=== PATIENT | female | born 1985 | race Hispanic/Latino ===

== ENCOUNTER 2019-08-25 19:47 | Inpatient (IN) | payer MEDICAID ==
[~2019-08-25] VITALS: Ht 152.4 cm; Wt 72.6 kg
[~2019-08-25 19:47] MED LIST: PREN-196 PO; PREN1TAB80 PO
[2019-08-25] MEDS ORDERED: LACTATED RINGERS 1000ML 1,000 ML IV PRN (19:50)
[2019-08-25] MEDS ORDERED: AMPICILLIN 2GM+NS 100ML 100 ML IV SCH (20:00)
[2019-08-25 20:30] VITALS: BP 118/71
[2019-08-25 20:50] LABS: APPEARANCE,URINE Cloudy (CLEAR); BILIRUBIN,URINE Negative (NEGATIVE); COLOR,URINE Yellow (YELLOW); GLUCOSE, URINE (UA) Negative (NEGATIVE); KETONES,URINE Negative (NEGATIVE); LEUKOCYTE ESTERASE ,URINE Large (NEGATIVE); NITRATE,URINE Negative (NEGATIVE); OCCULT BLOOD,URINE Negative (NEGATIVE); PH,URINE 6.5 (5.0-8.0); PROTEIN,URINE Negative (NEGATIVE)
[2019-08-25 21:05] LABS: RBC,URINE None Seen /HPF (0-1)
[2019-08-25 21:06] LABS: BACTERIA,URINE Few /HPF (None Seen)
[2019-08-25 21:19] LABS: HEMATOCRIT 38.3 % (36-48); MEAN CORPUSCULAR HEMOGLOBIN 31.7 pg (27.0-33.0); MEAN CORPUSCULAR HGB CONC 34.2 g/dL (32.0-36.0); MEAN CORPUSCULAR VOLUME 92.7 fL (79-99); RED BLOOD CELL COUNT(AUTO) 4.13 MIL/uL (4.00-5.50); RED CELL DISTRIBUTION WIDTH 13.9 % (11.0-15.5); WHITE BLOOD COUNT (AUTO) 9.1 K/uL (4.8-10.8)
[2019-08-26] MEDS: AMPICILLIN 1GM+NS 50ML 50 ML IV SCH ×2 (00:50→08:52)
[2019-08-26] MEDS: OXYTOCIN-LR 20 UNITS/1000 ML 1,000 ML IV SCH ×2 (03:55→11:56)
[2019-08-26] MEDS ORDERED: MEPERIDINE-PF 50 MG/ML SYG IVP SCH (07:15)
[2019-08-26] MEDS ORDERED: PROMETHAZINE HCL 25 MG/ML 1ML AMPULE IM SCH (07:15)
[2019-08-26] MEDS ORDERED: LACTATED RINGERS 500 ML 500 ML IV PRN (08:15)
[2019-08-26] MEDS ORDERED: EPHEDRINE SULFATE 50 MG/ML AMPULE IVP PRN (08:15)
[2019-08-26] MEDS ORDERED: NALOXONE HCL 0.4 MG/1 ML ML IV PRN (08:15)
[2019-08-26] MEDS ORDERED: WITCH HAZEL 1 PAD TP PRN (12:15)
[2019-08-26] MEDS ORDERED: MEASLES/MUMPS/RUBELLA VACCINE, LIVE 0.5 ML/VIAL SQ PRN (12:15)
[2019-08-26] MEDS ORDERED: ACETAMINOPHEN 325 MG TAB PO PRN (12:15)
[2019-08-26] MEDS ORDERED: DIPH,PERTUSS(ACELL),TET VAC/PF 0.5 ML VIAL IM PRN (12:15)
[2019-08-26] MEDS ORDERED: LANOLIN 30GM OINTMENT TP PRN (12:15)
[2019-08-26] MEDS ORDERED: BENZOCAINE/LANOLIN/ALOE VERA 60 ML AEROSOL TP PRN (12:15)
[2019-08-26 13:10] VITALS: BP 112/71
[2019-08-26] MEDS: IBUPROFEN 600 MG TABLET PO PRN ×2 (13:17→18:53)
[2019-08-26 16:29] VITALS: BP 110/68
[2019-08-26] MEDS ORDERED: PNV1TABL17 PO (16:37)
[2019-08-26 19:37] VITALS: BP 94/51
[2019-08-26] MEDS: DOCUSATE SODIUM 100 MG CAP PO SCH (20:56)
[2019-08-26 23:39] VITALS: BP 121/75
[2019-08-27 03:49] VITALS: BP 102/50
[2019-08-27 05:35] LABS: HEMATOCRIT 34.3 % (36-48); MEAN CORPUSCULAR HEMOGLOBIN 31.3 pg (27.0-33.0); MEAN CORPUSCULAR HGB CONC 33.2 g/dL (32.0-36.0); MEAN CORPUSCULAR VOLUME 94.2 fL (79-99); RED BLOOD CELL COUNT(AUTO) 3.64 MIL/uL (4.00-5.50); RED CELL DISTRIBUTION WIDTH 14.2 % (11.0-15.5); WHITE BLOOD COUNT (AUTO) 10.7 K/uL (4.8-10.8)
[2019-08-27 07:52] VITALS: BP 116/76
[2019-08-27] MEDS: DOCUSATE SODIUM 100 MG CAP PO SCH (08:49)
[2019-08-27] MEDS: IBUPROFEN 600 MG TABLET PO PRN (08:50)
[2019-08-27 09:11] LABS: HEPATITIS Bs ANTIGEN SCREEN P Negative (Negative)
[2019-08-27 11:08] VITALS: BP 123/76
--- NOTE | 2019-08-27 11:35 | NUR ---
DISCHARGE INSTRUCTIONS READ AND EXPLAINED TO PATIENT. QUESTIONS INVITED AND ANSWERED. NO RX GIVEN. PATIENT VOICED UNDERSTANDING ON ALL INSTRUCTIONS.
--- NOTE | 2019-08-27 11:50 | NUR ---
PATIENT LEFT UNIT VIA WHEELCHAIR WITH BELONGINGS IN HAND. PERSONAL VEHICLE USED FOR TRANSPORTATION. BABY SECURE IN CARSEAT. NO COMPLAINTS OR CONCERNS ADDRESSED FROM PATIENT ON DISCHARGE.
== END 2019-08-27 11:50 | disposition home or self-care (01) | DRG 560 ==
LOC: OBSVTOIN 19:47 → LDH 19:47 → WSH 08-26 13:10
PROVIDERS: ADMIT Obstetrics & Gynecology; ATTEND Obstetrics & Gynecology
PROC: 10E0XZZ Delivery of Products of Conception, External Approach (ICD-10-PCS; principal; 2019-08-26)
PROC: 3E0R3BZ Introduction of Anesthetic Agent into Spinal Canal, Percutaneous Approach (ICD-10-PCS; 2019-08-26)
PROC: 00HU33Z Insertion of Infusion Device into Spinal Canal, Percutaneous Approach (ICD-10-PCS; 2019-08-26)
PROC: 3E0234Z Introduction of Serum, Toxoid and Vaccine into Muscle, Percutaneous Approach (ICD-10-PCS; 2019-08-26)
PROC: 3E0134Z Introduction of Serum, Toxoid and Vaccine into Subcutaneous Tissue, Percutaneous Approach (ICD-10-PCS; 2019-08-26)
DX: O69.1XX0 Labor and delivery complicated by cord around neck, with compression, not applicable or unspecified (principal); Z37.0 Single live birth; O99.824 Streptococcus B carrier state complicating childbirth; Z23 Encounter for immunization; Z3A.39 39 weeks gestation of pregnancy
CPT/HCPCS: 36415; 81001; 85027; 86592; 86850; 86900; 86901; 87088; 87340; 90715; G0378; J0290; J2175; J2550; J2590; J7120

== ENCOUNTER 2020-03-27 18:30 | Emergency (ER) | payer MEDICAID ==
[~2020-03-27 18:30] MED LIST changes: +PNV1TABL17 PO
[2020-03-27] MEDS ORDERED: LIDOCAINE HCL 1% 20 ML VIAL ONE (18:48)
[2020-03-27] MEDS ORDERED: CEPHALEXIN 500 MG CAPSULE ONE (18:58)
[2020-03-27] MEDS ORDERED: HYDROCODONE/ACETAMINOPHEN 10/325 MG TAB ONE (18:58)
[2020-03-27] MEDS ORDERED: TETANUS/DIPHTHERIA TOXOID [ADULT] 0.5 ML VIAL IM ONE (18:59)
== END 2020-03-27 20:42 | disposition home or self-care (01) ==
LOC: EDH 18:30
DX: S61.214A Laceration without foreign body of right ring finger without damage to nail, initial encounter (principal); S61.216A Laceration without foreign body of right little finger without damage to nail, initial encounter; W26.0XXA Contact with knife, initial encounter; Y93.89 Activity, other specified; Y92.89 Other specified places as the place of occurrence of the external cause; Y99.8 Other external cause status
CPT/HCPCS: 12001; 73130; 90471; 90714

== ENCOUNTER 2020-04-05 16:55 | Emergency (ER) | payer MEDICAID | END 2020-04-05 19:54 | disposition left against medical advice (07) | LOC: EDH 16:55 | DX: Z48.02 Encounter for removal of sutures (principal); Z53.21 Procedure and treatment not carried out due to patient leaving prior to being seen by health care provider ==

== ENCOUNTER 2020-04-07 18:30 | Emergency (ER) | payer MEDICAID | END 2020-04-07 19:31 | disposition home or self-care (01) | LOC: EDH 18:30 | DX: S61.214D Laceration without foreign body of right ring finger without damage to nail, subsequent encounter (principal); S61.216D Laceration without foreign body of right little finger without damage to nail, subsequent encounter; X58.XXXD Exposure to other specified factors, subsequent encounter | CPT/HCPCS: 99281 ==

== ENCOUNTER 2020-04-13 19:03 | Emergency (ER) | payer MEDICAID ==
[2020-04-14] MEDS ORDERED: VITA1CAP85 PO (11:34)
== END 2020-04-13 19:44 | disposition home or self-care (01) ==
LOC: EDH 19:03
DX: S61.214D Laceration without foreign body of right ring finger without damage to nail, subsequent encounter (principal); S61.216D Laceration without foreign body of right little finger without damage to nail, subsequent encounter; S01.81XD Laceration without foreign body of other part of head, subsequent encounter; X58.XXXD Exposure to other specified factors, subsequent encounter
CPT/HCPCS: 99281

== ENCOUNTER 2020-04-14 07:35 | Emergency (ER) | payer MEDICAID ==
[~2020-04-14] VITALS: Ht 152.4 cm; Wt 61.2 kg
[2020-04-14 08:45] LABS: BILIRUBIN,URINE NEGATIVE (NEGATIVE); COLOR,URINE YELLOW (YELLOW); GLUCOSE, URINE (UA) NEGATIVE (NEGATIVE); KETONES,URINE NEGATIVE (NEGATIVE); LEUKOCYTE ESTERASE ,URINE SMALL (NEGATIVE); NITRATE,URINE NEGATIVE (NEGATIVE); OCCULT BLOOD,URINE LARGE (NEGATIVE); PROTEIN,URINE TRACE mg/dL (NEGATIVE); UROBILINOGEN,URINE 0.2 mg/dL (0.2-1.0)
[2020-04-14 08:46] LABS: HCG,QUAL RESULT NEGATIVE (NEGATIVE)
[2020-04-14 08:48] LABS: APPEARANCE,URINE CLOUDY (CLEAR)
[2020-04-14 08:58] LABS: BACTERIA,URINE Moderate /HPF (None Seen); RBC,URINE 26-50 /HPF (0-1)
[2020-04-14 08:59] LABS: MUCUS,URINE Moderate LPF (None Seen); SQUAMOUS EPITHELIAL CELL,UR 30-50 /HPF (0-2)
[2020-04-14] MEDS ORDERED: LACTATED RINGERS 1000ML 1,000 ML IV ONE (11:06)
[2020-04-14 11:30] VITALS: BP 119/74
[2020-04-14] MEDS ORDERED: VITA1CAP85 PO (11:34)
== END 2020-04-14 12:46 | disposition home or self-care (01) ==
LOC: EDH 07:35 → UNDOADMOB 07:36 → EDHIP 07:36 → UNDOADMOB 07:37 → UNDODISOB 12:48
DX: S66.129A Laceration of flexor muscle, fascia and tendon of unspecified finger at wrist and hand level, initial encounter (principal); Z20.822 Contact with and (suspected) exposure to COVID-19; X58.XXXA Exposure to other specified factors, initial encounter; Y93.89 Activity, other specified; Y92.89 Other specified places as the place of occurrence of the external cause
CPT/HCPCS: 81001; 81025; 87077; 87088; 87186; 87426; 99284; A4216; A4222; A4223; A4663; G0378 ×3; J7120; U0003